=== PATIENT | male | born 1950 | race Caucasian/White ===

== ENCOUNTER → 2023-07-14 06:31 | Outpatient (REF) | payer MEDICARE, OTHER, SELFPAY ==
[2023-07-14 07:36] LABS: ALT (SGPT) 83 U/L (0-50); AST (SGOT) 55 U/L (17-59); Albumin 4.4 g/dl (3.5-5.0); Alkaline Phosphatase 104 U/L (38-126); Blood Urea Nitrogen 19 mg/dl (9-20); Calcium 9.4 mg/dl (8.4-10.2); Carbon Dioxide 27 mmol/L (22-30); Chloride 105 mmol/L (98-107); Glucose 105 mg/dl (70-99); HDL Cholesterol 54 mg/dl; LDL Cholesterol, Calculated 98 mg/dl; Sodium 136 mmol/L (135-145); Total Bilirubin 0.9 mg/dl (0.2-1.3); Total Cholesterol 185 mg/dl (50-199); Total Protein 7.7 g/dl (6.3-8.2); Triglyceride 167 mg/dl (10-149); Very Low Density Lipoprotein 33 mg/dl (0-30); eGFR > 60.00
[2023-07-15 11:26] LABS: PSA, Total - Screen 1.52 ng/ml (0.0-4.0)
== END ==
LOC: REG 06:31
PROVIDERS: ATTENDING PHYSICIAN Family Medicine
DX: R73.01 Impaired fasting glucose (principal); I10 Essential (primary) hypertension; Z12.5 Encounter for screening for malignant neoplasm of prostate
CPT/HCPCS: 36415; 80053; 80061; 83036; G0103

== ENCOUNTER → 2024-01-12 06:43 | Outpatient (REF) | payer MEDICARE, OTHER, SELFPAY ==
[2024-01-12 10:45] LABS: ALT (SGPT) 72 U/L (0-50); AST (SGOT) 57 U/L (17-59); Albumin 4.4 g/dl (3.5-5.0); Alkaline Phosphatase 87 U/L (38-126); Blood Urea Nitrogen 25 mg/dl (9-20); Calcium 9.3 mg/dl (8.4-10.2); Carbon Dioxide 21 mmol/L (22-30); Chloride 104 mmol/L (98-107); Glucose 102 mg/dl (70-99); HDL Cholesterol 46 mg/dl; LDL Cholesterol, Calculated 106 mg/dl; Sodium 135 mmol/L (135-145); Total Bilirubin 0.9 mg/dl (0.2-1.3); Total Cholesterol 175 mg/dl (50-199); Total Protein 7.4 g/dl (6.3-8.2); Triglyceride 117 mg/dl (10-149); Very Low Density Lipoprotein 23 mg/dl (0-30); eGFR > 60.00
[2024-01-12 12:23] LABS: Glycohemoglobin (HgbA1c) 5.8 % (4.0-5.6)
== END ==
LOC: REG 06:43
PROVIDERS: ATTENDING PHYSICIAN Family Medicine
DX: R73.01 Impaired fasting glucose (principal); E78.2 Mixed hyperlipidemia
CPT/HCPCS: 36415; 80053; 80061; 83036

== ENCOUNTER 2024-01-29 07:00 | Emergency (ER) | payer MEDICARE, OTHER, SELFPAY ==
[2024-01-29 07:02] VITALS: BP 188/75
--- NOTE | 2024-01-29 07:18 | ED.GENMED ---
History of Present Illness
General
Chief Complaint: Breathing Problem
Source: patient and records
Time Seen by Provider: 01/29/24 07:08
History of Present Illness
History of Present Illness:
73-year-old male with past medical history of hypertension, hyperlipidemia, mild valvular disease presenting to the emergency department for evaluation of sinus congestion and cough with symptoms beginning on , last night became more acutely
short of breath with wheezing and coughing spasm prompting him to come to the emergency department this morning. No reported fevers at home. Did not take medication prior to arrival this morning. No known sick contacts or recent antibiotics.
Patient is otherwise denying any chest pain, palpitations, diaphoresis, abdominal pain, other GI or genitourinary related symptoms. 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
Past History
Past History
ED Past Medical History: HTN, Hypercholesterolemia and Other (Kidney stones)
ED Past Surgical History: Orthopedic (Left Hip replacement)
Social History
Tobacco: Non-smoker
Alcohol: Occasional
Drug: None
Personal:
Living: with family
Employment: Employed
Review of Systems
Review of Systems
All Other Systems: ROS reviewed and negative except as documented in HPI and ROS
Phy Exam
Physical Exam
Physical Exam:
GENERAL: Alert , in no apparent distress but does sound congested and has intermittent nonproductive cough throughout the exam
EYE: conjunctiva clear
NECK: Supple
ENT: o/p clr, mmm.
CARDIAC: Regular rate and rhythm
LUNGS: Scattered wheezing but most pronounced in the posterior lung [place] and exacerbated during coughing spasms, no Rales, no tachypnea or accessory muscle use
NEUROLOGICAL: Alert and oriented
SKIN: Warm and dry, skin intact.
MUSCULOSKELETAL: well perfused. No edema
PSYCH: Normal and appropriate interaction.
Scores
Heart Failure Risk
Heart Failure Risk Score: Not Applicable
Heart Score for Chest Pain Patients
STEMI patient?: Not applicable
Withdrawal Assessment of Alcohol
Withdrawal Assessment Completed?: Not applicable
Course
Orders/Labs/Results
Orders:
Orders
01/29/24 07:10
CXR2 [CR Chest - 2 Views ] Urgent
Comment:
Reason For Exam: SOB
01/29/24 07:11
EKG [Electrocardiogram (*1)] Urgent
Reason for Study: Shortness of Breath
EKG- Treatment ONCE
01/29/24 07:18
Albuterol Nebs [Ventolin Nebules] 2.5 mg INH R NOW STA
Prednisone [Deltasone] 50 mg PO NOW STA
01/29/24 07:57
CMP [Comprehensive Metabolic Panel] Urgent
COVID-19 Antigen Urgent
Source: Nasal Swab
Complete Blood Count/With Diff Urgent
Abnormal Lab Results
01/29/24
07:57
WBC 4.2 L 10^3/uL
(4.8-10.8)
RBC 4.21 L 10^6/uL
(4.70-6.10)
Hct 37.6 L %
(39.0-52.0)
MCH 32.1 H pg
(27.0-31.0)
MPV 10.5 H fL
(7.4-10.4)
Neutrophils % 31.9 L %
(42.2-75.2)
Monocytes % 10.1 H %
(1.7-9.3)
BUN 23 H mg/dl
(9-20)
Glucose 118 H mg/dl
(70-99)
ALT 68 H U/L
(0-50)
01/29/24 07:57
01/29/24 07:57
Vital Signs
Initial and Last Documented VS:
Initial Vital Signs
Temp Pulse Resp BP Pulse Ox
98.2 F 61 16 188/75 96
01/29/24 07:02 01/29/24 07:02 01/29/24 07:02 01/29/24 07:02 01/29/24 07:02
Last Documented Vital Signs
Temp Pulse Resp BP Pulse Ox
98.2 F 59 13 135/88 96
01/29/24 07:02 01/29/24 09:09 01/29/24 09:09 01/29/24 09:09 01/29/24 09:00
MDM/Problems Addressed
Differential Diagnosis Includes:
Viral URI, asthmatic bronchitis, pneumonia, COVID/flu, no concern for cardiac related issue, considered valvular dysfunction given patient's history however on echocardiogram his symptoms are mild and today symptoms seem to be most suggestive of a
viral infection
MDM/Problems Addressed:
73-year-old male presenting emergency department for evaluation of URI-like symptoms that started on , yesterday evening and today patient with more coughing spasms and shortness of breath. Found with mild wheezing on exam here. I suspect
asthmatic bronchitis/viral URI to be most likely cause. Will check labs, chest x-ray, COVID test. Ordered albuterol treatment and prednisone. Reassessment following
*Radiology
Radiology exam reviewed: radiology read reviewed
*Pulse Oximetry
Patient hypoxic: no
*Government Relations Analyst Interpretation
Rate: normal
Rhythm: sinus
*Critical Care Note
Total Time (30-74mins, 75-104mins- exclusive of procedures): Not Applicable
Patient Management
Social determinants of health affecting care: Living situation and Strong social support
Escalation/DeEscalation of care consider admission/obs:
Patient's chest x-ray shows a left perihilar groundglass opacity suspicious for pneumonia. Per radiology this is much less likely to be lung cancer however they did notify the pulmonary nodule board and advised patient that he will likely need
repeat chest x-ray or CT scan to further evaluate. Patient's blood work did reveal a mild leukopenia signifying possible viral etiology for pneumonia however given acute symptoms we will treat for bacterial with doxycycline. I did also order
steroid and patient has an albuterol inhaler at home. Advised on return precautions to the ER. Patient notes feeling significant improvement with medications here and feels comfortable being discharged home.
ED Attending Note
-
Portions of this chart may have been created with voice recognition software.� Occasional wrong word or��sound alike� substitutions may have occurred due to the inherent limitations of voice recognition software.
Discharge Plan
Departure
Patient Disposition: Home (Routine Discharge)
Date of Disposition: 01/29/24
Time of Disposition: 09:17
Patient with high blood pressure during this ER visit?: Yes
Discharge Problem:
Pneumonia
Instructions: Pneumonia
Prescriptions:
New
doxycycline hyclate [Vibramycin] 100 mg capsule
100 mg PO BID 10 Days Qty: 20 0RF
methylprednisolone [Medrol (Michele)] 4 mg tablets,dose pack
4 mg PO DIRECTED Qty: 21 0RF
No Action
diltiazem HCl 240 MG capsule,extended release 24 hr
240 mg PO DAILY
lisinopril 10 MG tablet
20 mg PO DAILY
Cialis
5 mg PO PRN PRN (Reason: sex)
Patient Comments:
2-3 week
Super B Maxi Complex Caplet
1 cap PO DAILY
atorvastatin 10 MG tablet
10 mg PO DAILY
lorazepam 0.5 MG tablet
0.5 mg PO [id number] PRN (Reason: anxiety)
mupirocin 1 GRAM ointment
1 applic intranasal BID
Patient Comments:
patient has been applying bid since tuesday02/24/19 am
aspirin 325 MG tablet
325 mg PO DAILY 0RF
sennosides [senna] 1 TABLET tablet
2 tab PO BID 0RF
acetaminophen 325 MG tablet
650 mg PO Q4HWA 0RF
magnesium hydroxide 30 ML suspension
30 ml PO DAILYPRN PRN (Reason: constipation) 0RF
ibuprofen [Advil Liqui-Gel] 200 MG capsule
400 mg PO BID Qty: 1 0RF
Rx Instructions:
take with food
do not take within 2 hours of aspirin
oxycodone 5 MG tablet
5 mg PO Q4HPRN PRN (Reason: moderate-severe pain) Qty: 30 0RF
Rx Instructions:
1 tab moderate pain or 2 if pain severe
Dx total joint replacement
ongoing therapy
Referrals:
Lorie Gardiner, [Family Provider] -
Stand Alone Forms: Return to Work
Interventions
Interventions:
*Risk Screen - Suicide Last Done: 01/29/24 07:30
*General Assessment Last Done: 01/29/24 07:30
*Neglect/Abuse Screening Last Done: 01/29/24 07:30
ED- Fall Risk Assessment Last Done: 01/29/24 07:30
*ED COVID-19 Vaccine History Last Done: 01/29/24 07:30
ED- Cardiac Assessment Last Done: 01/29/24 07:30
ED- Pulmonary Assessment Last Done: 01/29/24 07:30
Discharge Date and Time
Print Language: ROMANIAN
[2024-01-29 07:25] VITALS: BMI 36.0
[2024-01-29 07:47] VITALS: BP 148/57
[2024-01-29] MEDS: DELTASONE 50 MG PO (07:56)
[2024-01-29] MEDS: VENTOLIN NEBULES 2.5 MG INH (07:56)
[2024-01-29 08:00] VITALS: BP 165/79
[2024-01-29 08:19] LABS: Hematocrit 37.6 % (39.0-52.0); Hemoglobin 13.5 g/dL (13.0-18.0); Mean Corp Hgb Conc. 35.9 g/dL (33.0-37.0); Mean Corpuscular Hgb 32.1 pg (27.0-31.0); Mean Corpuscular Volume 89.3 fL (80.0-94.0); Mean Platelet Volume 10.5 fL (7.4-10.4); Platelet Count 153 10^3/uL (130-400); Red Blood Cell Count 4.21 10^6/uL (4.70-6.10); Red Cell Dist. Width 13.1 % (11.5-14.5); White Blood Cell Count 4.2 10^3/uL (4.8-10.8)
[2024-01-29 08:20] LABS: ALT (SGPT) 68 U/L (0-50); AST (SGOT) 56 U/L (17-59); Albumin 4.2 g/dl (3.5-5.0); Alkaline Phosphatase 90 U/L (38-126); Blood Urea Nitrogen 23 mg/dl (9-20); Carbon Dioxide 23 mmol/L (22-30); Chloride 105 mmol/L (98-107); Estimated Creatinine Clearance 95 ml/min; Glucose 118 mg/dl (70-99); Potassium 4.7 mmol/L (3.5-5.1); Sodium 140 mmol/L (135-145); Total Bilirubin 0.7 mg/dl (0.2-1.3); Total Protein 7.2 g/dl (6.3-8.2); eGFR > 60.00
[2024-01-29 08:24] LABS: COVID-19 Antigen Negative (Negative)
[2024-01-29 09:05] LABS: % Basophils 1.2 % (0-2); % Eosinophils 5.7 % (0-6); % Immature Granulocytes 0.2 % (0-0.5); % Lymphocytes 50.9 % (20.5-51.1); % Monocytes 10.1 % (1.7-9.3); % Neutrophils 31.9 % (42.2-75.2); Absolute Basophils 0.1 10^3/uL (0-0.2); Absolute Eosinophils 0.2 10^3/uL (0-0.7); Absolute Lymphocytes 2.2 10^3/uL (1.2-3.4); Absolute Monocytes 0.4 10^3/uL (0.1-0.6); Absolute Neutrophils 1.4 10^3/uL (1.4-6.5); Nucleated Red Blood Cells % 0 % (-)
[2024-01-29 09:09] VITALS: BP 135/88
[2024-01-29 09:26] VITALS: BP 138/88
--- NOTE | 2024-01-29 09:26 | EDRN ---
Reviewed discharge instructions with patient. Verbalized understanding. Ambulated with steady gait to the lobby.
--- NOTE | 2024-02-06 09:53 | OID.L.PAT ---
Pulmonary Nodule Pat Letter
- -
02/06/24
ANDREA CEVALLOS
[address] [place] [address]
[place], [place] [address]
Clyde MENDEZ,
A pulmonary nodule was seen on an imaging study done by [facility]. This was reviewed by the [facility] Pulmonary Nodule Advisory Board and the following recommendation was made:
Recommendation: Follow up Chest Xray in 6 to 8 weeks
If you have any questions, please do not hesitate to contact your primary care physician. If you are in need of a Physician, you can go to [email or web address] and click on 'Find a Provider'. Type 'Family Medicine' in the search.
Oncology Nurse Navigator
[facility]
[phone]
--- NOTE | 2024-02-06 09:54 | OID.L.REC ---
Pulmonary Nodule Follow Up
- Recommendation
02/06/24
Pulmonary Nodule Review Recommendations
Your patient, ANDREA CEVALLOS, had a pulmonary nodule seen on an imaging study done on 01/29/24 in the [facility] Emergency Room.
This was reviewed by the [facility] Pulmonary Nodule Advisory Board and the following recommendation was made:
Recommendation: Follow up Chest Xray in 6 to 8 weeks
If you have any questions please do not hesitate to contact us.
Sincerely,
Oncology Nurse Navigator
[facility]
[phone]
== END 2024-01-29 09:25 | disposition home or self-care (01) ==
LOC: EMR 07:00
PROVIDERS: EMERGENCY PHYSICIAN Emergency Medicine; FAMILY PHYSICIAN Family Medicine
DX: J18.9 Pneumonia, unspecified organism (principal); E78.00 Pure hypercholesterolemia, unspecified; I10 Essential (primary) hypertension; I38 Endocarditis, valve unspecified; Z87.442 Personal history of urinary calculi; Z91.148 Patient's other noncompliance with medication regimen for other reason
CPT/HCPCS: 99283; 94640; 71046; 80053; 85025; 87811; 93005

== ENCOUNTER → 2024-03-07 06:17 | Outpatient (REF) | payer MEDICARE, OTHER, SELFPAY | LOC: RAD 06:17 | PROVIDERS: ATTENDING PHYSICIAN Family Medicine | DX: J18.9 Pneumonia, unspecified organism (principal); R93.89 Abnormal findings on diagnostic imaging of other specified body structures; R91.1 Solitary pulmonary nodule | CPT/HCPCS: 71250 ==

== ENCOUNTER 2024-05-28 07:42 | Emergency (ER) | payer MEDICARE, OTHER, SELFPAY ==
[2024-05-28 07:49] VITALS: BP 162/71
[2024-05-28 07:57] VITALS: BMI 34.5
[2024-05-28 08:09] VITALS: BP 155/63
--- NOTE | 2024-05-28 08:20 | ED.GENMED ---
History of Present Illness
General
Chief Complaint: Breathing Problem
Source: patient
Time Seen by Provider: 05/28/24 08:07
History of Present Illness
History of Present Illness:
This patient is a 73-year-old male presents emergency department complaints of dyspnea specifically while sleeping for the last 3-4 nights. He denies dyspnea during the day, with exertion, or otherwise. He has noted a nonproductive cough for the
last 3 to 4 days as well. Symptoms are similar to when he had pneumonia in the past. When he is dyspnea while sleeping he notices 'gurgling' when he lays on his right side. He denies leg edema, chest pain or pressure, fever, chills, nausea,
vomiting, abdominal pain, or other complaints. He is compliant with his medications.
Past History
Past History
ED Past Medical History: HTN, Hypercholesterolemia and Other (Kidney stones)
ED Past Surgical History: Orthopedic (Left Hip replacement)
Social History
Tobacco: Non-smoker
Alcohol: Occasional
Drug: None
Personal:
Living: with family
Employment: Employed
Phy Exam
Physical Exam
Physical Exam:
GENERAL: Alert , in no apparent distress, very well-appearing, occasional dry cough noted
EYE: pupils equal and reactive
NECK: Supple, no significant adenopathy.
ENT: o/p clr, mmm.
CARDIAC: Regular rate and rhythm .
LUNGS: Equal breath sounds bilaterally, no acute respiratory distress, mild scattered wheezing
ABDOMEN: Soft, without focal tenderness, no r/g, no cvat
NEUROLOGICAL: Alert and oriented, no focal neuro deficits
SKIN: Warm and dry, skin intact.
MUSCULOSKELETAL: No edema, well perfused.
PSYCH: Normal and appropriate interaction.
Scores
Heart Failure Risk
Heart Failure Risk Score: Not Applicable
Course
Orders/Labs/Results
Orders:
Orders
05/28/24 07:52
Electrocardiogram (*1) Urgent
Reason for Study: Shortness of Breath
EKG- Treatment ONCE
05/28/24 08:12
Cardiac Monitoring- Treatment ONCE
CR Chest - 2 Views Urgent
Comment:
Reason For Exam: sob espec at night
05/28/24 08:14
COVID-19 Antigen Urgent
Source: Nasal Swab
05/28/24 08:36
Complete Blood Count/No Diff Urgent
Comprehensive Metabolic Panel Urgent
NT-proBNP Urgent
Troponin I Urgent
Influenza A+B Rapid Molecular Urgent
ADRI Source: Nasal Swab
Specimen Description:
05/28/24 09:35
Doxycycline [Vibramycin] 100 mg PO NOW STA
05/28/24 09:35
Prednisone [Deltasone] 50 mg PO NOW STA
Abnormal Lab Results
05/28/24
08:36
WBC 4.6 L 10^3/uL
(4.8-10.8)
RBC 4.45 L 10^6/uL
(4.70-6.10)
Glucose 112 H mg/dl
(70-99)
05/28/24 08:36
05/28/24 08:36
Vital Signs
Initial and Last Documented VS:
Initial Vital Signs
Temp Pulse Resp BP Pulse Ox
98.4 F 63 18 162/71 98
05/28/24 07:49 05/28/24 07:49 05/28/24 07:49 05/28/24 07:49 05/28/24 07:49
Last Documented Vital Signs
Temp Pulse Resp BP Pulse Ox
98.4 F 48 14 127/59 94
05/28/24 07:49 05/28/24 09:00 05/28/24 09:00 05/28/24 09:00 05/28/24 09:00
*Critical Care Note
Total Time (30-74mins, 75-104mins- exclusive of procedures): Not Applicable
Update Note
Update Note:
Patient presents to the Emergency Department with dyspnea at night____
Number and Complexity of Problems Addressed at the Encounter
� Chronic conditions affecting care:
� Acute Exacerbation and/or Progression of Chronic Illness:
� Differential Diagnosis includes: But not limited to pneumonia, bronchitis, heart failure, etc. etc.
Amount and/or Complexity of Data to be Reviewed and Analyzed
� I performed an independent evaluation of and my interpretation is:
EKG:read by me, nsr with 1st degree block, no acute ischemia
CT:
Xrays:cxr read by rocky roblero
Laboratory Studies:generlaly unremarkable, sl leukopenia likely related to illness
Other:
� Review of other/old records reveals:
� Clinical information was obtained by an independent historian:
� Prescriptions/Medications Considered but not given:
� Further testing considered but not performed:
Risk of Complications and/or Morbidity or Mortality of Patient Management
� Social determinants of health affecting care:
� Discussion with other providers (PCP, Hospitalists, Consultants, etc):
� Escalation of care including admission/observation vs risk of discharge considered:940am pt preferes to use inhaler at home rather than neb here, will rx doxy and prednisone given sxs and wheezing. Has had sick contacts (son
and grandson). Suspect bronchitis and/or pna not yet noted on cxr. d/w pt import of f/u and reasons to rted.
ED Attending Note
-
Portions of this chart may have been created with voice recognition software.� Occasional wrong word or��sound alike� substitutions may have occurred due to the inherent limitations of voice recognition software.
Discharge Plan
Departure
Patient Disposition: Home (Routine Discharge)
Date of Disposition: 05/28/24
Time of Disposition: 09:36
Patient with high blood pressure during this ER visit?: Yes
Condition: Good
Discharge Problem:
Bronchitis
Instructions: Shortness of Breath (Dyspnea) (DC), BLOOD PRESSURE
Prescriptions:
New
doxycycline hyclate 100 mg capsule
100 mg PO BID Qty: 14 0RF
prednisone 50 mg tablet
50 mg PO DAILY Qty: 5 0RF
No Action
diltiazem HCl 240 MG capsule,extended release 24 hr
240 mg PO DAILY
lisinopril 10 MG tablet
20 mg PO DAILY
atorvastatin 10 MG tablet
10 mg PO DAILY
acetaminophen 325 MG tablet
650 mg PO Q4HWA 0RF
ibuprofen [Advil Liqui-Gel] 200 MG capsule
400 mg PO BID Qty: 1 0RF
Rx Instructions:
take with food
do not take within 2 hours of aspirin
tamsulosin [Flomax] 0.4 mg Capsule
0.4 mg PO DAILY
finasteride 5 mg Tablet
5 mg PO DAILY
escitalopram oxalate [Lexapro] 5 mg Tablet
5 mg PO DAILY
Referrals:
Lorie Gardiner, [Family Provider] - Follow up in 2-3 days
Activity Restrictions/Additional Instructions:
IF YOU DEVELOP PERSISTENT OR INCREASING OR NEW SHORTNESS OF BREATH, ANY CHEST PAIN, DIZZINESS, FEVER, GET WORSE, DO NOT GET BETTER, OR OTHER WORRISOME SIGNS, PLEASE RETURN TO THE ER IMMEDIATELY! YOU HAVE A SLIGHTLY DECREASED WHITE BLOOD CELL COUNT
TODAY WHICH IS LIKELY CONSISTENT WITH YOUR ILLNESS. PLEASE CONSIDER HAVING THIS RECHECKED WITH YOUR FAMILY DOCTOR SOON WHEN YOU ARE FEELING BETTER.
Interventions
Interventions:
*Risk Screen - Suicide Last Done: 05/28/24 07:49
*General Assessment Last Done: 05/28/24 07:49
*Neglect/Abuse Screening Last Done: 05/28/24 07:49
ED- Fall Risk Assessment Last Done: 05/28/24 08:02
*ED COVID-19 Vaccine History Last Done: 05/28/24 07:57
ED- Cardiac Assessment Last Done: 05/28/24 08:02
ED- Pulmonary Assessment Last Done: 05/28/24 08:02
Discharge Date and Time
Print Language: GAMBIAN
[2024-05-28 08:36] LABS: COVID-19 Antigen Negative (Negative)
[2024-05-28 08:56] LABS: Hematocrit 40.6 % (39.0-52.0); Hemoglobin 13.6 g/dL (13.0-18.0); Mean Corp Hgb Conc. 33.5 g/dL (33.0-37.0); Mean Corpuscular Hgb 30.6 pg (27.0-31.0); Mean Corpuscular Volume 91.2 fL (80.0-94.0); Mean Platelet Volume 10.3 fL (7.4-10.4); Platelet Count 158 10^3/uL (130-400); Red Blood Cell Count 4.45 10^6/uL (4.70-6.10); Red Cell Dist. Width 13.1 % (11.5-14.5); White Blood Cell Count 4.6 10^3/uL (4.8-10.8)
[2024-05-28 09:00] VITALS: BP 127/59
[2024-05-28 09:02] LABS: ALT (SGPT) 41 U/L (0-50); AST (SGOT) 35 U/L (17-59); Albumin 4.3 g/dl (3.5-5.0); Alkaline Phosphatase 79 U/L (38-126); Blood Urea Nitrogen 20 mg/dl (9-20); Calcium 9.3 mg/dl (8.4-10.2); Carbon Dioxide 25 mmol/L (22-30); Chloride 102 mmol/L (98-107); Estimated Creatinine Clearance 93 ml/min; Glucose 112 mg/dl (70-99); Potassium 4.6 mmol/L (3.5-5.1); Sodium 136 mmol/L (135-145); Total Bilirubin 0.7 mg/dl (0.2-1.3); Total Protein 7.4 g/dl (6.3-8.2); eGFR > 60.00
[2024-05-28 09:14] LABS: NT-proBNP 61.8 pg/ml; Troponin I < 0.012 ng/ml
[2024-05-28] MEDS: VIBRAMYCIN 100 MG PO (09:54)
[2024-05-28] MEDS: DELTASONE 50 MG PO (09:54)
== END 2024-05-28 10:04 | disposition home or self-care (01) ==
LOC: EMR 07:42
PROVIDERS: EMERGENCY PHYSICIAN Emergency Medicine; FAMILY PHYSICIAN Family Medicine
DX: J20.9 Acute bronchitis, unspecified (principal); Z11.52 Encounter for screening for COVID-19; I10 Essential (primary) hypertension; E78.00 Pure hypercholesterolemia, unspecified; Z87.442 Personal history of urinary calculi; Z96.642 Presence of left artificial hip joint; Z87.01 Personal history of pneumonia (recurrent)
CPT/HCPCS: 99283; 71046; 80053; 83880; 84484; 85027; 87502; 87811; 93005

== ENCOUNTER → 2024-07-13 06:22 | Outpatient (REF) | payer MEDICARE, OTHER, SELFPAY ==
[2024-07-13 07:31] LABS: % Basophils 1.8 % (0-2); % Eosinophils 12.3 % (0-6); % Immature Granulocytes 0.4 % (0-0.5); % Lymphocytes 47.1 % (20.5-51.1); % Monocytes 9.3 % (1.7-9.3); % Neutrophils 29.1 % (42.2-75.2); Absolute Basophils 0.1 10^3/uL (0-0.2); Absolute Eosinophils 0.7 10^3/uL (0-0.7); Absolute Lymphocytes 2.7 10^3/uL (1.2-3.4); Absolute Monocytes 0.5 10^3/uL (0.1-0.6); Absolute Neutrophils 1.7 10^3/uL (1.4-6.5); Hematocrit 40.2 % (39.0-52.0); Hemoglobin 13.8 g/dL (13.0-18.0); Mean Corp Hgb Conc. 34.3 g/dL (33.0-37.0); Mean Corpuscular Hgb 30.7 pg (27.0-31.0); Mean Corpuscular Volume 89.5 fL (80.0-94.0); Mean Platelet Volume 10.2 fL (7.4-10.4); Nucleated Red Blood Cells % 0 % (-); Platelet Count 165 10^3/uL (130-400); Red Blood Cell Count 4.49 10^6/uL (4.70-6.10); Red Cell Dist. Width 13.2 % (11.5-14.5); White Blood Cell Count 5.7 10^3/uL (4.8-10.8)
[2024-07-13 07:48] LABS: ALT (SGPT) 38 U/L (0-50); AST (SGOT) 34 U/L (17-59); Albumin 4.5 g/dl (3.5-5.0); Alkaline Phosphatase 99 U/L (38-126); Blood Urea Nitrogen 20 mg/dl (9-20); Calcium 9.4 mg/dl (8.4-10.2); Carbon Dioxide 27 mmol/L (22-30); Chloride 100 mmol/L (98-107); Glucose 103 mg/dl (70-99); HDL Cholesterol 59 mg/dl; LDL Cholesterol, Calculated 100 mg/dl; Potassium 5.3 mmol/L (3.5-5.1); Sodium 138 mmol/L (135-145); Total Bilirubin 0.9 mg/dl (0.2-1.3); Total Cholesterol 184 mg/dl (50-199); Total Protein 7.4 g/dl (6.3-8.2); Triglyceride 129 mg/dl (10-149); Very Low Density Lipoprotein 25 mg/dl (0-30); eGFR > 60.00
[2024-07-13 08:03] LABS: Vitamin D, 25-OH*** 36.7 ng/mL (30-80)
[2024-07-13 08:17] LABS: PSA, Total - Screen 1.22 ng/ml (0.0-4.0); TSH 1.36 uIU/ml (0.47-4.68)
[2024-07-13 10:06] LABS: Urine Albumin 2+ (Neg - Trace); Urine Bilirubin Negative (Negative); Urine Character Clear (Clear); Urine Color Yellow; Urine Glucose Negative (Negative); Urine Ketone 1+ (Negative); Urine Leukocyte 1+ (Negative); Urine Nitrite Negative (Negative); Urine Occult Blood Negative (Negative); Urine Urobilinogen 1+ (Neg - 1+)
[2024-07-13 11:25] LABS: Urine Red Blood Cell 0-2 /HPF (0-2); Urine Squamous Cell 0-2 /LPF (Few)
[2024-07-13 12:45] LABS: Glycohemoglobin (HgbA1c) 5.8 % (4.0-5.6)
== END ==
LOC: REG 06:22
PROVIDERS: ATTENDING PHYSICIAN Family Medicine
DX: I35.0 Nonrheumatic aortic (valve) stenosis (principal); G47.30 Sleep apnea, unspecified; I10 Essential (primary) hypertension; K76.0 Fatty (change of) liver, not elsewhere classified; E78.2 Mixed hyperlipidemia; N40.1 Benign prostatic hyperplasia with lower urinary tract symptoms; Z79.899 Other long term (current) drug therapy; Z12.5 Encounter for screening for malignant neoplasm of prostate
CPT/HCPCS: 36415; 80053; 80061; 81003; 81015; 82306; 83036; 84443; 85025; G0103

== ENCOUNTER → 2024-10-11 06:31 | Outpatient (REF) | payer MEDICARE, OTHER, SELFPAY | LOC: RCS 06:31 | PROVIDERS: ATTENDING PHYSICIAN Internal Medicine Cardiovascular Disease; FAMILY PHYSICIAN Family Medicine | DX: I35.0 Nonrheumatic aortic (valve) stenosis (principal) | CPT/HCPCS: 93306 ==

== ENCOUNTER 2024-10-26 07:25 | Emergency (ER) | payer SELFPAY ==
[2024-10-26 07:34] VITALS: BP 170/73
[2024-10-26 07:43] VITALS: BP 170/73
[2024-10-26] MEDS: MOTRIN 600 MG PO (08:06)
[2024-10-26 08:25] VITALS: BMI 35.6
[2024-10-26 09:16] VITALS: BP 156/73
[2024-10-26 09:38] VITALS: BP 150/64
[2024-10-26 10:02] VITALS: BP 142/62
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
== END 2024-10-26 10:15 | disposition home or self-care (01) ==
LOC: EMR 07:25
PROVIDERS: EMERGENCY PHYSICIAN Emergency Medicine; FAMILY PHYSICIAN Family Medicine
DX: S00.33XA Contusion of nose, initial encounter (principal); S60.511A Abrasion of right hand, initial encounter; Y04.2XXA Assault by strike against or bumped into by another person, initial encounter; Y92.239 Unspecified place in hospital as the place of occurrence of the external cause; Y99.0 Civilian activity done for income or pay; I10 Essential (primary) hypertension; E78.00 Pure hypercholesterolemia, unspecified
CPT/HCPCS: 99284; 70160; 70450; 70486

== ENCOUNTER → 2025-01-08 13:09 | Outpatient (REF) | payer MEDICARE, OTHER, SELFPAY | LOC: RAD 13:09 | PROVIDERS: ATTENDING PHYSICIAN Family Medicine | DX: J18.9 Pneumonia, unspecified organism (principal); R91.1 Solitary pulmonary nodule; R93.89 Abnormal findings on diagnostic imaging of other specified body structures | CPT/HCPCS: 71250 ==